=== PATIENT | female | born 1970 | race Caucasian/White ===

== ENCOUNTER 2020-09-07 13:42 | Inpatient (IN) ==
[2020-09-07] MEDS ORDERED: Isovue-370 500 ML BOTTLE IVP ONE (15:49)
[2020-09-07] MEDS ORDERED: Gadolinium Contrast Agent (WT Based) IV PRN (16:28)
[2020-09-07] MEDS ORDERED: Naloxone 0.4 MG/ML INJ IVP PRN (16:36)
[2020-09-07] MEDS ORDERED: *HR* OxyCODONE Immed Rel 5 MG TABLET PO PRN (16:36)
[2020-09-07] MEDS ORDERED: Potassium Chloride Elixir 20 MEQ/15 ML UDC PO ONE (16:53)
[2020-09-07] MEDS ORDERED: Isovue-370 500 ML BOTTLE PO ONE (17:12)
[2020-09-07] MEDS: Nicotine 14 MG PATCH.TD24 TD SCH (17:40)
[2020-09-07] MEDS: *HR* OxyCODONE Immed Rel 5 MG TABLET PO PRN (17:45)
[2020-09-07 18:42] LABS: Lactate Dehydrogenase > 3600 Units/L (140-271); Magnesium 1.7 mg/dL (1.6-2.6)
[2020-09-07 19:27] LABS: Hepatitis B Surface Antigen Nonreactive (Nonreactive)
[2020-09-07 19:58] LABS: Hepatitis B Core IgM Nonreactive (Nonreactive)
[2020-09-07 20:00] LABS: Hepatitis A Antibody IgM Nonreactive (Nonreactive)
[2020-09-07] MEDS ORDERED: *HR* HYDROmorphone (PF) 1 MG/ML SYRINGE IVP ONE (20:47)
[2020-09-07 23:07] LABS: Hepatitis C Virus Antibody Reactive (Nonreactive)
[2020-09-08 01:08] LABS: Basophils % 0.3 %; Eosinophils # 0.1 K/mcL (0.0-0.6); Hematocrit 37.9 % (35.3-44.9); Hemoglobin 12.2 g/dL (11.5-15.4); Immature Granulocytes % 1.8 % (0-4); Lymphocytes # 1.1 K/mcL (0.6-4.6); Lymphocytes % 12.3 %; Mean Corpuscular HGB Conc 32.2 g/dL (31.6-35.5); Mean Corpuscular Hemoglobin 31.7 pg (28.0-33.3); Mean Corpuscular Volume 98.4 fL (83.0-100.0); Mean Platelet Volume 10.5 fL (9.4-12.4); Monocytes # 0.6 K/mcL (0.0-1.3); Monocytes % 6.9 %; Nucleated Red Blood Cells 0.4 /100 WBC (0); Platelet Count 190 K/mcL (140-400); Red Blood Count 3.85 M/mcL (3.82-4.97); Red Cell Distribution Width 14.3 % (11.5-14.5); Segmented Neutrophils % 77.7 %
[2020-09-08 01:15] LABS: INR 1.2; Prothrombin Time 13.5 Seconds (9.4-12.1)
[2020-09-08 01:25] LABS: BUN/Creatinine Ratio 20 (6-26); Blood Urea Nitrogen 17 mg/dL (6-20); Calcium 12.3 mg/dL (8.6-10.3); Carbon Dioxide 32 mEq/L (23-29); Chloride 97 mEq/L (98-107); Glucose 120 mg/dL (70-105); Magnesium 1.8 mg/dL (1.6-2.6); Osmolality,Calculated 287 (280-300); Phosphorous 3.6 mg/dL (2.7-4.5); Potassium 3.2 mEq/L (3.5-5.1); Sodium 137 mEq/L (136-145); eGFR For African Americans > 60 (> 60); eGFR For Non-African Americans > 60 (> 60)
[2020-09-08] MEDS: *HR* OxyCODONE Immed Rel 5 MG TABLET PO PRN ×3 (06:20→20:02)
[2020-09-08] MEDS: Nicotine 14 MG PATCH.TD24 TD SCH (08:23)
[2020-09-08] MEDS: Ondansetron 4 MG/2 ML VIAL IVP PRN ×2 (08:33→20:14)
[2020-09-08] MEDS ORDERED: *HR* FentaNYL (PF) 100 MCG/2 ML VIAL IVP ONE (12:22)
[2020-09-08] MEDS ORDERED: *HR* Midazolam HCl 2 MG/2 ML VIAL IVP ONE (12:22)
[2020-09-08] MEDS ORDERED: 0.9 % Sodium Chloride 500 ML ONE (12:35)
[2020-09-08] MEDS ORDERED: *HR* OxyCODONE Immed Rel 5 MG TABLET PO PRN (13:49)
[2020-09-08] MEDS ORDERED: Sennosides 8.6 MG TABLET PO PRN (13:55)
[2020-09-08] MEDS: Gabapentin 300 MG CAPSULE PO SCH ×2 (14:50→20:02)
[2020-09-08] MEDS: hydrALAZINE 25 MG TABLET PO SCH (15:04)
[2020-09-08] MEDS: Ringers Solution, Lactated 1,000 ML IVC SCH (15:36)
[2020-09-09] MEDS: ALPRAZolam 0.5 MG TABLET PO PRN ×2 (00:46→20:09)
[2020-09-09 01:25] LABS: Basophils % 0.4 %; Eosinophils # 0.1 K/mcL (0.0-0.6); Eosinophils % 1.8 %; Hematocrit 34.8 % (35.3-44.9); Hemoglobin 10.9 g/dL (11.5-15.4); Immature Granulocytes % 1.7 % (0-4); Lymphocytes # 0.8 K/mcL (0.6-4.6); Lymphocytes % 11.5 %; Mean Corpuscular HGB Conc 31.3 g/dL (31.6-35.5); Mean Corpuscular Hemoglobin 31.7 pg (28.0-33.3); Mean Corpuscular Volume 101.2 fL (83.0-100.0); Mean Platelet Volume 10.5 fL (9.4-12.4); Monocytes # 0.6 K/mcL (0.0-1.3); Monocytes % 8.5 %; Neutrophils # 5.5 K/mcL (1.6-8.9); Nucleated Red Blood Cells 0.4 /100 WBC (0); Platelet Count 155 K/mcL (140-400); Red Blood Count 3.44 M/mcL (3.82-4.97); Red Cell Distribution Width 14.3 % (11.5-14.5); Segmented Neutrophils % 76.1 %; White Blood Count 7.2 K/mcL (4.3-11.1)
[2020-09-09] MEDS: *HR* OxyCODONE Immed Rel 5 MG TABLET PO PRN ×5 (01:36→23:11)
[2020-09-09 01:46] LABS: BUN/Creatinine Ratio 23 (6-26); Blood Urea Nitrogen 18 mg/dL (6-20); Calcium 12.1 mg/dL (8.6-10.3); Carbon Dioxide 31 mEq/L (23-29); Chloride 96 mEq/L (98-107); Glucose 111 mg/dL (70-105); Osmolality,Calculated 289 (280-300); Potassium 3.6 mEq/L (3.5-5.1); Sodium 138 mEq/L (136-145); eGFR For African Americans > 60 (> 60); eGFR For Non-African Americans > 60 (> 60)
[2020-09-09] MEDS: *HR* Enoxaparin 40 MG/0.4 ML SYRINGE SQ SCH (07:04)
[2020-09-09] MEDS: Ringers Solution, Lactated 1,000 ML IVC SCH (07:04)
[2020-09-09] MEDS: hydrALAZINE 25 MG TABLET PO SCH (08:18)
[2020-09-09] MEDS: Gabapentin 300 MG CAPSULE PO SCH ×3 (08:18→20:09)
[2020-09-09] MEDS: Cholecalciferol (D-3) 1,000 UNIT (25MCG) TABLET PO SCH (08:18)
[2020-09-09] MEDS: Aspirin Enteric Coated 81 MG Tablet PO SCH (08:19)
[2020-09-09] MEDS: Nicotine 14 MG PATCH.TD24 TD SCH (08:19)
[2020-09-09] MEDS: Ondansetron 4 MG/2 ML VIAL IVP PRN (08:29)
[2020-09-09] MEDS: Sennosides 8.6 MG TABLET PO SCH (10:23)
[2020-09-09] MEDS: Morphine Sulfate ER (12 HR) 15 MG TABLET.ER PO SCH ×2 (10:23→20:09)
[2020-09-09] MEDS: dexAMETHasone 4 MG TABLET PO SCH ×2 (15:03→20:09)
[2020-09-09] MEDS: Ipratropium/Albuterol Neb 3 ML IH PRN (15:44)
[2020-09-10 00:59] LABS: Basophils % 0.3 %; Eosinophils % 0.3 %; Hematocrit 35.9 % (35.3-44.9); Immature Granulocytes % 2.3 % (0-4); Lymphocytes # 0.6 K/mcL (0.6-4.6); Lymphocytes % 8.2 %; Mean Corpuscular HGB Conc 30.6 g/dL (31.6-35.5); Mean Corpuscular Hemoglobin 31.4 pg (28.0-33.3); Mean Corpuscular Volume 102.6 fL (83.0-100.0); Mean Platelet Volume 10.7 fL (9.4-12.4); Monocytes # 0.2 K/mcL (0.0-1.3); Monocytes % 3.5 %; Neutrophils # 5.9 K/mcL (1.6-8.9); Platelet Count 155 K/mcL (140-400); Red Cell Distribution Width 14.2 % (11.5-14.5); Segmented Neutrophils % 85.4 %
[2020-09-10] MEDS: *HR* OxyCODONE Immed Rel 5 MG TABLET PO PRN ×5 (02:12→22:41)
[2020-09-10] MEDS: *HR* Enoxaparin 40 MG/0.4 ML SYRINGE SQ SCH (05:26)
[2020-09-10] MEDS: Cholecalciferol (D-3) 1,000 UNIT (25MCG) TABLET PO SCH (08:16)
[2020-09-10] MEDS: Gabapentin 300 MG CAPSULE PO SCH ×3 (08:16→20:32)
[2020-09-10] MEDS: Morphine Sulfate ER (12 HR) 15 MG TABLET.ER PO SCH ×2 (08:16→20:33)
[2020-09-10] MEDS: Aspirin Enteric Coated 81 MG Tablet PO SCH (08:16)
[2020-09-10] MEDS: hydrALAZINE 25 MG TABLET PO SCH (08:17)
[2020-09-10] MEDS: dexAMETHasone 4 MG TABLET PO SCH ×3 (08:17→20:32)
[2020-09-10] MEDS: Nicotine 14 MG PATCH.TD24 TD SCH (08:18)
[2020-09-10] MEDS: Sennosides 8.6 MG TABLET PO SCH (08:18)
[2020-09-10] MEDS: Ipratropium/Albuterol Neb 3 ML IH PRN (15:55)
[2020-09-10] MEDS: ALPRAZolam 0.5 MG TABLET PO PRN (20:32)
[2020-09-11] MEDS: *HR* OxyCODONE Immed Rel 5 MG TABLET PO PRN ×3 (02:58→17:28)
[2020-09-11 04:54] LABS: HCV Quant Log NOT DETECTED log IU/mL
[2020-09-11] MEDS: *HR* Enoxaparin 40 MG/0.4 ML SYRINGE SQ SCH (05:41)
[2020-09-11] MEDS: hydrALAZINE 25 MG TABLET PO SCH (08:19)
[2020-09-11] MEDS: Morphine Sulfate ER (12 HR) 15 MG TABLET.ER PO SCH ×2 (08:20→20:19)
[2020-09-11] MEDS: Gabapentin 300 MG CAPSULE PO SCH ×3 (08:20→20:19)
[2020-09-11] MEDS: Cholecalciferol (D-3) 1,000 UNIT (25MCG) TABLET PO SCH (08:20)
[2020-09-11] MEDS: Aspirin Enteric Coated 81 MG Tablet PO SCH (08:20)
[2020-09-11] MEDS: Sennosides 8.6 MG TABLET PO SCH ×2 (08:20→20:19)
[2020-09-11] MEDS: dexAMETHasone 4 MG TABLET PO SCH ×3 (08:21→20:19)
[2020-09-11] MEDS: Nicotine 14 MG PATCH.TD24 TD SCH (08:21)
[2020-09-11] MEDS ORDERED: polyethylene glycoL 3350 17 GM POWD.PACK PO ONE (10:30)
[2020-09-11] MEDS: Fluticasone Propionate Nasal 50 MCG/SPRAY BOTTLE NS SCH (10:37)
[2020-09-11] MEDS: levoFLOXacin 750 MG TABLET PO SCH (10:37)
[2020-09-11 11:14] LABS: HCV Quant Interpretation NOT DETECTED (Not Detected)
[2020-09-11] MEDS ORDERED: 0.9 % Sodium Chloride 250 ML ONE (11:56)
[2020-09-11] MEDS: Ipratropium/Albuterol Neb 3 ML IH SCH ×2 (15:43→22:20)
[2020-09-12] MEDS: ALPRAZolam 0.5 MG TABLET PO PRN (01:39)
[2020-09-12] MEDS: Ipratropium/Albuterol Neb 3 ML IH SCH ×4 (03:46→21:06)
[2020-09-12] MEDS: *HR* Enoxaparin 40 MG/0.4 ML SYRINGE SQ SCH (05:52)
[2020-09-12] MEDS: Aspirin Enteric Coated 81 MG Tablet PO SCH (07:52)
[2020-09-12] MEDS: Cholecalciferol (D-3) 1,000 UNIT (25MCG) TABLET PO SCH (07:52)
[2020-09-12] MEDS: Gabapentin 300 MG CAPSULE PO SCH (07:52)
[2020-09-12] MEDS: dexAMETHasone 4 MG TABLET PO SCH ×3 (07:52→21:30)
[2020-09-12] MEDS: hydrALAZINE 25 MG TABLET PO SCH (07:53)
[2020-09-12] MEDS: levoFLOXacin 750 MG TABLET PO SCH (07:53)
[2020-09-12] MEDS: Morphine Sulfate ER (12 HR) 15 MG TABLET.ER PO SCH (07:53)
[2020-09-12] MEDS: Sennosides 8.6 MG TABLET PO SCH ×2 (07:53→21:30)
[2020-09-12] MEDS: Nicotine 14 MG PATCH.TD24 TD SCH (07:53)
[2020-09-12] MEDS: Fluticasone Propionate Nasal 50 MCG/SPRAY BOTTLE NS SCH (07:59)
[2020-09-12] MEDS ORDERED: hydrALAZINE 25 MG TABLET PO SCH (09:00)
[2020-09-12 12:01] LABS: Alanine Aminotransferase 31 Units/L (7-52); Albumin 3.5 g/dL (3.5-5.7); Alkaline Phosphatase 149 Units/L (34-104); Aspartate Amino Transferase 77 Units/L (13-39); BUN/Creatinine Ratio 38 (6-26); Bilirubin,Total 0.5 mg/dL (0.3-1.0); Blood Urea Nitrogen 34 mg/dL (6-20); Calcium 13.2 mg/dL (8.6-10.3); Carbon Dioxide 33 mEq/L (23-29); Chloride 96 mEq/L (98-107); Globulin 3.6 g/dL (2.4-3.5); Glucose 127 mg/dL (70-105); Osmolality,Calculated 293 (280-300); Potassium 4.8 mEq/L (3.5-5.1); Sodium 137 mEq/L (136-145); Total Protein 7.1 g/dL (6.4-8.9); eGFR For African Americans > 60 (> 60); eGFR For Non-African Americans > 60 (> 60)
[2020-09-12] MEDS: Ringers Solution, Lactated 1,000 ML IVC SCH ×2 (12:50→21:29)
[2020-09-12] MEDS ORDERED: Gadolinium Contrast Agent (WT Based) IV PRN (15:20)
[2020-09-12] MEDS ORDERED: *HR* OxyCODONE Immed Rel 5 MG TABLET PO PRN (16:54)
[2020-09-12] MEDS: levETIRAcetam 250 MG TABLET PO SCH (17:10)
[2020-09-12] MEDS: *HR* OxyCODONE Immed Rel 5 MG TABLET PO PRN (21:30)
[2020-09-13] MEDS: *HR* OxyCODONE Immed Rel 5 MG TABLET PO PRN ×2 (00:30→09:54)
[2020-09-13 01:43] LABS: Basophils # 0.1 K/mcL (0.0-0.2); Basophils % 0.5 %; Eosinophils # 0.1 K/mcL (0.0-0.6); Eosinophils % 0.4 %; Hematocrit 36.9 % (35.3-44.9); Hemoglobin 11.4 g/dL (11.5-15.4); Immature Granulocytes % 3.8 % (0-4); Lymphocytes # 0.7 K/mcL (0.6-4.6); Lymphocytes % 5.1 %; Mean Corpuscular HGB Conc 30.9 g/dL (31.6-35.5); Mean Corpuscular Hemoglobin 30.9 pg (28.0-33.3); Mean Platelet Volume 11.1 fL (9.4-12.4); Monocytes # 0.5 K/mcL (0.0-1.3); Neutrophils # 11.2 K/mcL (1.6-8.9); Nucleated Red Blood Cells 0.5 /100 WBC (0); Platelet Count 157 K/mcL (140-400); Red Blood Count 3.69 M/mcL (3.82-4.97); Red Cell Distribution Width 13.8 % (11.5-14.5); Segmented Neutrophils % 86.2 %
[2020-09-13 02:06] LABS: Alanine Aminotransferase 33 Units/L (7-52); Albumin 3.3 g/dL (3.5-5.7); Albumin/Globulin Ratio 0.9 (1.1-2.2); Alkaline Phosphatase 147 Units/L (34-104); Aspartate Amino Transferase 78 Units/L (13-39); BUN/Creatinine Ratio 36 (6-26); Bilirubin,Total 0.5 mg/dL (0.3-1.0); Blood Urea Nitrogen 36 mg/dL (6-20); Calcium 12.7 mg/dL (8.6-10.3); Carbon Dioxide 32 mEq/L (23-29); Chloride 94 mEq/L (98-107); Globulin 3.5 g/dL (2.4-3.5); Glucose 153 mg/dL (70-105); Magnesium 1.7 mg/dL (1.6-2.6); Osmolality,Calculated 295 (280-300); Potassium 4.7 mEq/L (3.5-5.1); Sodium 137 mEq/L (136-145); Total Protein 6.8 g/dL (6.4-8.9); eGFR For African Americans > 60 (> 60); eGFR For Non-African Americans 58 (> 60)
[2020-09-13] MEDS: ALPRAZolam 0.5 MG TABLET PO PRN (02:55)
[2020-09-13 04:35] LABS: ABG Base Excess 7 mEq/L (-2 to 3); ABG HCO3 32 mEq/L (21-27); ABG Oxygen Saturation 96 % (95-98); ABG PCO2 48 mmHg (35-45); ABG PH 7.43 pH Units (7.32-7.45); ABG PO2 81 mmHg (85-104); ABG TCO2 33 mEq/L (20-26)
[2020-09-13] MEDS: Ipratropium/Albuterol Neb 3 ML IH SCH ×4 (04:35→21:23)
[2020-09-13] MEDS: Haloperidol Lactate 5 MG/ML VIAL IM ONE (04:37)
[2020-09-13] MEDS: levETIRAcetam 250 MG TABLET PO SCH ×2 (05:26→17:18)
[2020-09-13] MEDS ORDERED: *HR* LORazepam 2 MG/ML VIAL IVP ONE (05:54)
[2020-09-13] MEDS ORDERED: Isovue-370 500 ML BOTTLE IVP ONE (05:54)
[2020-09-13] MEDS: Nicotine 14 MG PATCH.TD24 TD SCH (08:15)
[2020-09-13] MEDS: Ringers Solution, Lactated 1,000 ML IVC SCH ×2 (08:17→17:32)
[2020-09-13] MEDS: Fluticasone Propionate Nasal 50 MCG/SPRAY BOTTLE NS SCH (08:20)
[2020-09-13 09:03] LABS: Adenovirus Not Detected (Not Detect); Bordetella Pertussis Not Detected (Not Detect); Chlamydophila pneumoniae Not Detected (Not Detect); Coronavirus 229E Not Detected (Not Detect); Coronavirus HKU1 Not Detected (Not Detect); Coronavirus NL63 Not Detected (Not Detect); Coronavirus OC43 Not Detected (Not Detect); Human Metapneumovirus Not Detected (Not Detect); Human Rhinovirus/Enterovirus Not Detected (Not Detect); Influenza A Subtype 2009 H1 Not Detected (Not Detect); Influenza B Not Detected (Not Detect); Mycoplasma pneumoniae Not Detected (Not Detect); Parainfluenza Virus 1 Not Detected (Not Detect); Parainfluenza Virus 2 Not Detected (Not Detect); Parainfluenza Virus 3 Not Detected (Not Detect); Parainfluenza Virus 4 Not Detected (Not Detect); Respiratory Syncytial Virus Not Detected (Not Detect); SARS-CoV-2 Not Detected (Not Detect)
[2020-09-13] MEDS ORDERED: Furosemide 20 MG/2 ML VIAL IVP ONE (11:27)
[2020-09-13] MEDS: Aspirin Enteric Coated 81 MG Tablet PO SCH (12:42)
[2020-09-13] MEDS: dexAMETHasone 4 MG TABLET PO SCH ×3 (12:43→19:43)
[2020-09-13] MEDS: levoFLOXacin 750 MG TABLET PO SCH (12:44)
[2020-09-13] MEDS: hydrALAZINE 25 MG TABLET PO SCH (12:44)
[2020-09-13] MEDS: Isosorbide MONOnitrate (24 HR) 60 MG TAB.ER.24H PO SCH (12:44)
[2020-09-13] MEDS: Sennosides 8.6 MG TABLET PO SCH ×2 (12:44→19:43)
[2020-09-13] MEDS: Cholecalciferol (D-3) 1,000 UNIT (25MCG) TABLET PO SCH (12:45)
[2020-09-13] MEDS ORDERED: *HR* HYDROmorphone (PF) 1 MG/ML SYRINGE IVP PRN (12:58)
[2020-09-13] MEDS ORDERED: Ondansetron 4 MG/2 ML VIAL ONE (14:24)
[2020-09-13] MEDS ORDERED: Dexamethasone 4 MG/ML VIAL ONE (14:24)
[2020-09-13] MEDS ORDERED: Lidocaine -MPF 2% 2 ML VIAL ONE (14:24)
[2020-09-13] MEDS ORDERED: *HR* FentaNYL (PF) 100 MCG/2 ML VIAL ONE (14:25)
[2020-09-13] MEDS ORDERED: *HR* Propofol 200 MG/20 ML VIAL IVP ONE (14:25)
[2020-09-13] MEDS ORDERED: Pamidronate 30 MG in 0.9 % Sodium Chloride 500 ML IVPB ONE (14:28)
[2020-09-13] MEDS ORDERED: *HR* Rocuronium Bromide 50 MG/5 ML VIAL ONE (14:44)
[2020-09-13] MEDS ORDERED: *HR* Metoprolol 5 MG/5 ML VIAL IVP PRN (15:27)
[2020-09-13] MEDS: Dexmedetomidine HCl 400 MCG/100 ML MLS IVC SCH (16:52)
[2020-09-13] MEDS: allopurinoL 300 MG TABLET PO SCH (17:17)
[2020-09-13] MEDS: levoFLOXacin 750 MG/150 ML 750 MG/150 ML BAG IVPB SCH (17:33)
[2020-09-13] MEDS: *HR* HYDROmorphone (PF) 1 MG/ML SYRINGE IVP PRN (17:36)
[2020-09-13] MEDS: *HR* LORazepam 2 MG/ML VIAL IVP PRN (20:15)
[2020-09-14] MEDS ORDERED: ETOPOSIDE IVPB SCH
[2020-09-14] MEDS ORDERED: CISPLATIN IV SCH
[2020-09-14] MEDS ORDERED: Fosaprepitant Dimeglumine 150 MG in 0.9 % Sodium Chloride 150 ML IVPB SCH
[2020-09-14] MEDS ORDERED: MAGNESIUM SULFATE IV SCH
[2020-09-14] MEDS ORDERED: SODIUM CHLORIDE EXCEL BG 0.9% IVPB SCH
[2020-09-14] MEDS ORDERED: SODIUM CHLORIDE 0.9% IV SCH
[2020-09-14 00:59] LABS: Basophils # 0.1 K/mcL (0.0-0.2); Basophils % 0.6 %; Hematocrit 35.2 % (35.3-44.9); Hemoglobin 11.4 g/dL (11.5-15.4); Immature Granulocytes % 4.9 % (0-4); Lymphocytes # 0.8 K/mcL (0.6-4.6); Mean Corpuscular HGB Conc 32.4 g/dL (31.6-35.5); Mean Corpuscular Hemoglobin 31.5 pg (28.0-33.3); Mean Corpuscular Volume 97.2 fL (83.0-100.0); Mean Platelet Volume 11.2 fL (9.4-12.4); Monocytes # 0.3 K/mcL (0.0-1.3); Monocytes % 2.9 %; Neutrophils # 8.2 K/mcL (1.6-8.9); Nucleated Red Blood Cells 1.5 /100 WBC (0); Platelet Count 147 K/mcL (140-400); Red Blood Count 3.62 M/mcL (3.82-4.97); Red Cell Distribution Width 13.9 % (11.5-14.5); Segmented Neutrophils % 83.6 %; White Blood Count 9.8 K/mcL (4.3-11.1)
[2020-09-14 01:19] LABS: Phosphorous 4.4 mg/dL (2.7-4.5); Uric Acid 11.4 mg/dL (2.3-7.6)
[2020-09-14] MEDS: Dexmedetomidine HCl 400 MCG/100 ML MLS IVC SCH ×4 (01:34→19:42)
[2020-09-14 01:43] LABS: Alanine Aminotransferase 32 Units/L (7-52); Albumin 3.2 g/dL (3.5-5.7); Albumin/Globulin Ratio 0.9 (1.1-2.2); Alkaline Phosphatase 144 Units/L (34-104); Aspartate Amino Transferase 79 Units/L (13-39); BUN/Creatinine Ratio 40 (6-26); Bilirubin,Total 0.5 mg/dL (0.3-1.0); Blood Urea Nitrogen 35 mg/dL (6-20); Calcium 12.8 mg/dL (8.6-10.3); Carbon Dioxide 35 mEq/L (23-29); Chloride 92 mEq/L (98-107); Globulin 3.6 g/dL (2.4-3.5); Glucose 112 mg/dL (70-105); Magnesium 1.8 mg/dL (1.6-2.6); Osmolality,Calculated 297 (280-300); Potassium 4.5 mEq/L (3.5-5.1); Sodium 139 mEq/L (136-145); Total Protein 6.8 g/dL (6.4-8.9); eGFR For African Americans > 60 (> 60); eGFR For Non-African Americans > 60 (> 60)
[2020-09-14] MEDS: *HR* HYDROmorphone (PF) 1 MG/ML SYRINGE IVP PRN ×4 (03:09→23:39)
[2020-09-14] MEDS: Ipratropium/Albuterol Neb 3 ML IH SCH ×4 (03:45→22:10)
[2020-09-14] MEDS: *HR* Enoxaparin 40 MG/0.4 ML SYRINGE SQ SCH (05:41)
[2020-09-14] MEDS: Ringers Solution, Lactated 1,000 ML IVC SCH (05:42)
[2020-09-14] MEDS ORDERED: Lidocaine -MPF 1% 5 ML AMPUL INFILT ONE (07:41)
[2020-09-14] MEDS: *HR* LORazepam 2 MG/ML VIAL IVP PRN ×2 (08:34→17:25)
[2020-09-14] MEDS: levoFLOXacin 750 MG/150 ML 750 MG/150 ML BAG IVPB SCH (08:35)
[2020-09-14] MEDS: Aspirin Enteric Coated 81 MG Tablet PO SCH (08:39)
[2020-09-14] MEDS: dexAMETHasone 4 MG TABLET PO SCH ×2 (08:40→20:09)
[2020-09-14] MEDS: Sennosides 8.6 MG TABLET PO SCH ×2 (08:40→19:42)
[2020-09-14] MEDS: allopurinoL 300 MG TABLET PO SCH (08:40)
[2020-09-14] MEDS: Cholecalciferol (D-3) 1,000 UNIT (25MCG) TABLET PO SCH (08:40)
[2020-09-14] MEDS: Isosorbide MONOnitrate (24 HR) 60 MG TAB.ER.24H PO SCH (08:40)
[2020-09-14] MEDS: hydrALAZINE 25 MG TABLET PO SCH (08:40)
[2020-09-14] MEDS: Fluticasone Propionate Nasal 50 MCG/SPRAY BOTTLE NS SCH (08:40)
[2020-09-14] MEDS ORDERED: Haloperidol Lactate 5 MG/ML VIAL IVP ONE (08:58)
[2020-09-14] MEDS: Haloperidol Lactate 5 MG/ML VIAL IM ONE (11:11)
[2020-09-14] MEDS ORDERED: *HR* LORazepam 2 MG/ML VIAL IVP PRN (12:00)
[2020-09-14] MEDS ORDERED: Furosemide 20 MG/2 ML VIAL IVP PRN (12:00)
[2020-09-14] MEDS ORDERED: 0.9 % Sodium Chloride w KCl 20 MEQ/1,000 ML MLS IVC ONE (12:00)
[2020-09-14] MEDS ORDERED: Prochlorperazine 10 MG/2 ML VIAL IVP PRN (12:24)
[2020-09-14] MEDS ORDERED: Dexamethasone 4 MG/ML VIAL IVP SCH (13:00)
[2020-09-14 18:02] LABS: BUN/Creatinine Ratio 34 (6-26); Blood Urea Nitrogen 35 mg/dL (6-20); Calcium 11.3 mg/dL (8.6-10.3); Carbon Dioxide 26 mEq/L (23-29); Chloride 100 mEq/L (98-107); Glucose 189 mg/dL (70-105); Osmolality,Calculated 299 (280-300); Phosphorous 4.7 mg/dL (2.7-4.5); Potassium 5.4 mEq/L (3.5-5.1); Sodium 138 mEq/L (136-145); eGFR For African Americans > 60 (> 60); eGFR For Non-African Americans 56 (> 60)
[2020-09-14] MEDS: Nicotine 14 MG PATCH.TD24 TD SCH (20:14)
[2020-09-15] MEDS: Dexmedetomidine HCl 400 MCG/100 ML MLS IVC SCH ×4 (00:57→20:11)
[2020-09-15] MEDS: *HR* LORazepam 2 MG/ML VIAL IVP PRN ×3 (01:17→23:01)
[2020-09-15 04:02] LABS: Albumin 2.9 g/dL (3.5-5.7); BUN/Creatinine Ratio 39 (6-26); Blood Urea Nitrogen 43 mg/dL (6-20); Calcium 10.7 mg/dL (8.6-10.3); Carbon Dioxide 26 mEq/L (23-29); Chloride 96 mEq/L (98-107); Glucose 359 mg/dL (70-105); Osmolality,Calculated 305 (280-300); Phosphorous 5.2 mg/dL (2.7-4.5); Potassium 5.1 mEq/L (3.5-5.1); Sodium 135 mEq/L (136-145); Uric Acid 13.4 mg/dL (2.3-7.6); eGFR For African Americans > 60 (> 60); eGFR For Non-African Americans 53 (> 60)
[2020-09-15] MEDS: Ipratropium/Albuterol Neb 3 ML IH SCH ×4 (04:17→21:28)
[2020-09-15] MEDS: *HR* Enoxaparin 40 MG/0.4 ML SYRINGE SQ SCH (05:14)
[2020-09-15] MEDS: *HR* HYDROmorphone (PF) 1 MG/ML SYRINGE IVP PRN (06:03)
[2020-09-15] MEDS ORDERED: SODIUM CHLORIDE 0.9% IVPB ONE (09:04)
[2020-09-15] MEDS ORDERED: RASBURICASE IVPB ONE (09:04)
[2020-09-15] MEDS: Fluticasone Propionate Nasal 50 MCG/SPRAY BOTTLE NS SCH (09:05)
[2020-09-15] MEDS: Aspirin Enteric Coated 81 MG Tablet PO SCH (09:05)
[2020-09-15] MEDS: Sennosides 8.6 MG TABLET PO SCH ×2 (09:06→19:44)
[2020-09-15] MEDS: levoFLOXacin 750 MG/150 ML 750 MG/150 ML BAG IVPB SCH (09:10)
[2020-09-15] MEDS: Nicotine 14 MG PATCH.TD24 TD SCH (09:11)
[2020-09-15] MEDS: Dexamethasone 4 MG/ML VIAL IVP SCH ×3 (09:18→20:10)
[2020-09-15] MEDS ORDERED: SODIUM CHLORIDE EXCEL BG 0.9% IVPB SCH (14:00)
[2020-09-15] MEDS ORDERED: Prochlorperazine 10 MG/2 ML VIAL IVP SCH (14:00)
[2020-09-15] MEDS ORDERED: *HR* LORazepam 2 MG/ML VIAL IVP PRN (14:00)
[2020-09-15] MEDS ORDERED: ETOPOSIDE IVPB SCH (14:00)
[2020-09-15] MEDS ORDERED: 0.9 % Sodium Chloride 500 ML IVC SCH (14:00)
[2020-09-16] MEDS: Ipratropium/Albuterol Neb 3 ML IH SCH ×4 (03:33→23:00)
[2020-09-16] MEDS: Dexmedetomidine HCl 400 MCG/100 ML MLS IVC SCH ×2 (04:51→13:36)
[2020-09-16 05:20] LABS: Calcium 9.5 mg/dL (8.6-10.3); Phosphorous 5.5 mg/dL (2.7-4.5); Potassium 4.9 mEq/L (3.5-5.1)
[2020-09-16] MEDS: *HR* Enoxaparin 40 MG/0.4 ML SYRINGE SQ SCH (06:40)
[2020-09-16] MEDS: Nicotine 14 MG PATCH.TD24 TD SCH (08:23)
[2020-09-16] MEDS: Dexamethasone 4 MG/ML VIAL IVP SCH ×3 (08:25→21:33)
[2020-09-16] MEDS: levoFLOXacin 750 MG/150 ML 750 MG/150 ML BAG IVPB SCH (08:28)
[2020-09-16] MEDS: *HR* HYDROmorphone (PF) 1 MG/ML SYRINGE IVP PRN (08:42)
[2020-09-16] MEDS: Fluticasone Propionate Nasal 50 MCG/SPRAY BOTTLE NS SCH (08:48)
[2020-09-16] MEDS: Aspirin Enteric Coated 81 MG Tablet PO SCH (10:35)
[2020-09-16] MEDS: Sennosides 8.6 MG TABLET PO SCH ×2 (10:36→21:37)
[2020-09-16] MEDS: *HR* LORazepam 2 MG/ML VIAL IVP PRN (10:48)
[2020-09-16] MEDS ORDERED: SODIUM CHLORIDE 0.9% IVPB ONE (11:00)
[2020-09-16] MEDS ORDERED: RASBURICASE IVPB ONE (11:00)
[2020-09-16] MEDS ORDERED: SODIUM CHLORIDE EXCEL BG 0.9% IVPB SCH (14:00)
[2020-09-16] MEDS ORDERED: 0.9 % Sodium Chloride 500 ML IVC SCH (14:00)
[2020-09-16] MEDS ORDERED: *HR* LORazepam 2 MG/ML VIAL IVP PRN (14:00)
[2020-09-16] MEDS ORDERED: ETOPOSIDE IVPB SCH (14:00)
[2020-09-16] MEDS ORDERED: Prochlorperazine 10 MG/2 ML VIAL ONE (14:26)
[2020-09-16] MEDS: QUEtiapine Fumarate 25 MG TABLET PO SCH ×2 (14:29→21:38)
[2020-09-16] MEDS ORDERED: Prochlorperazine 10 MG/2 ML VIAL IVP SCH (14:30)
[2020-09-16] MEDS ORDERED: Prochlorperazine 10 MG/2 ML VIAL IVP ONE (14:45)
[2020-09-16] MEDS ORDERED: *HR* Dextrose 50 % in Water (Vial) 50 ML VIAL IVP PRN (16:45)
[2020-09-16] MEDS ORDERED: Dextrose Gel 15 GM/37.5 ML TUBE PO PRN ×2 (16:45)
[2020-09-16] MEDS ORDERED: D5% in Water 1,000 ML IVC PRN (16:45)
[2020-09-16] MEDS: Insulin DETEMIR 100 UNIT/ML X5UNITS SUBQ SCH (17:56)
[2020-09-16] MEDS: Insulin LISPRO 300 UNITS/3 ML VIAL SUBQ SCH ×2 (17:56→21:44)
[2020-09-16] MEDS: allopurinoL 300 MG TABLET PO SCH (17:57)
[2020-09-17] MEDS: *HR* HYDROmorphone (PF) 1 MG/ML SYRINGE IVP PRN ×2 (01:42→11:06)
[2020-09-17] MEDS: Ipratropium/Albuterol Neb 3 ML IH SCH ×4 (03:33→22:15)
[2020-09-17 03:46] LABS: Hematocrit 32.4 % (35.3-44.9); Mean Corpuscular HGB Conc 29.9 g/dL (31.6-35.5); Mean Corpuscular Hemoglobin 30.6 pg (28.0-33.3); Mean Corpuscular Volume 102.2 fL (83.0-100.0); Mean Platelet Volume 11.3 fL (9.4-12.4); Platelet Count 100 K/mcL (140-400); Red Blood Count 3.17 M/mcL (3.82-4.97); Red Cell Distribution Width 13.7 % (11.5-14.5); White Blood Count 8.4 K/mcL (4.3-11.1)
[2020-09-17 04:05] LABS: Calcium 8.6 mg/dL (8.6-10.3); Magnesium 2.3 mg/dL (1.6-2.6); Phosphorous 6.8 mg/dL (2.7-4.5); Potassium 5.4 mEq/L (3.5-5.1); Uric Acid 5.1 mg/dL (2.3-7.6)
[2020-09-17 04:56] LABS: Hemoglobin 9.7 g/dL (11.5-15.4)
[2020-09-17] MEDS: *HR* Enoxaparin 40 MG/0.4 ML SYRINGE SQ SCH (04:57)
[2020-09-17] MEDS ORDERED: 0.9 % Sodium Chloride 500 ML IVC ONE ×2 (07:10→17:25)
[2020-09-17] MEDS: Insulin LISPRO 300 UNITS/3 ML VIAL SUBQ SCH ×4 (08:51→20:51)
[2020-09-17] MEDS: Dexamethasone 4 MG/ML VIAL IVP SCH ×3 (09:19→20:50)
[2020-09-17] MEDS: QUEtiapine Fumarate 25 MG TABLET PO SCH ×2 (09:20→23:27)
[2020-09-17] MEDS: Nicotine 14 MG PATCH.TD24 TD SCH (09:20)
[2020-09-17] MEDS: Sennosides 8.6 MG TABLET PO SCH ×2 (09:20→20:51)
[2020-09-17] MEDS: Aspirin Enteric Coated 81 MG Tablet PO SCH (09:20)
[2020-09-17] MEDS: allopurinoL 300 MG TABLET PO SCH (09:20)
[2020-09-17] MEDS: Fluticasone Propionate Nasal 50 MCG/SPRAY BOTTLE NS SCH (09:21)
[2020-09-17] MEDS: Insulin DETEMIR 100 UNIT/ML X5UNITS SUBQ SCH (09:21)
[2020-09-17] MEDS: *HR* LORazepam 2 MG/ML VIAL IVP PRN ×2 (09:53→20:50)
[2020-09-17] MEDS ORDERED: Acetaminophen 325 MG TABLET PO PRN (20:34)
[2020-09-18] MEDS ORDERED: *HR* LORazepam 2 MG/ML VIAL IVP STA (01:23)
[2020-09-18] MEDS: Ipratropium/Albuterol Neb 3 ML IH SCH ×4 (03:52→22:03)
[2020-09-18] MEDS: *HR* LORazepam 2 MG/ML VIAL IVP PRN ×2 (04:47→21:25)
[2020-09-18] MEDS: *HR* Enoxaparin 40 MG/0.4 ML SYRINGE SQ SCH (05:00)
[2020-09-18] MEDS: QUEtiapine Fumarate 25 MG TABLET PO SCH ×2 (08:31→20:14)
[2020-09-18] MEDS: Aspirin Enteric Coated 81 MG Tablet PO SCH (08:31)
[2020-09-18] MEDS: Sennosides 8.6 MG TABLET PO SCH ×2 (08:32→20:13)
[2020-09-18] MEDS: Dexamethasone 4 MG/ML VIAL IVP SCH ×3 (08:32→20:14)
[2020-09-18] MEDS: allopurinoL 300 MG TABLET PO SCH (08:32)
[2020-09-18] MEDS: Nicotine 14 MG PATCH.TD24 TD SCH (08:32)
[2020-09-18] MEDS: Fluticasone Propionate Nasal 50 MCG/SPRAY BOTTLE NS SCH (08:35)
[2020-09-18] MEDS: Insulin DETEMIR 100 UNIT/ML X5UNITS SUBQ SCH (08:39)
[2020-09-18] MEDS: Insulin LISPRO 300 UNITS/3 ML VIAL SUBQ SCH ×4 (08:40→20:11)
[2020-09-18] MEDS ORDERED: levoFLOXacin 750 MG/150 ML 750 MG/150 ML BAG IVPB SCH (09:00)
[2020-09-18 10:53] LABS: Hemoglobin 9.1 g/dL (11.5-15.4); Red Cell Distribution Width 13.6 % (11.5-14.5)
[2020-09-18 10:54] LABS: Hematocrit 29.2 % (35.3-44.9); Immature Platelets 6.6 % (1.1-6.1); Mean Corpuscular HGB Conc 31.2 g/dL (31.6-35.5); Mean Corpuscular Volume 99.3 fL (83.0-100.0); Mean Platelet Volume 11.4 fL (9.4-12.4); Red Blood Count 2.94 M/mcL (3.82-4.97); White Blood Count 14.9 K/mcL (4.3-11.1)
[2020-09-18 11:13] LABS: Calcium 7.8 mg/dL (8.6-10.3); Potassium 4.8 mEq/L (3.5-5.1)
[2020-09-18] MEDS ORDERED: Furosemide 40 MG/4 ML VIAL IVP ONE (12:49)
[2020-09-18 14:22] LABS: VBG Ionized Calcium 1.01 mmol/L (1.15-1.35)
[2020-09-19] MEDS: Ipratropium/Albuterol Neb 3 ML IH SCH ×4 (04:12→21:35)
[2020-09-19 04:29] LABS: Mean Corpuscular HGB Conc 31.5 g/dL (31.6-35.5); Mean Corpuscular Hemoglobin 31.5 pg (28.0-33.3)
[2020-09-19 04:31] LABS: Hematocrit 32.7 % (35.3-44.9); Hemoglobin 10.3 g/dL (11.5-15.4); Immature Platelets 5.8 % (1.1-6.1); Mean Platelet Volume 11.9 fL (9.4-12.4); Red Blood Count 3.27 M/mcL (3.82-4.97); Red Cell Distribution Width 13.3 % (11.5-14.5); White Blood Count 10.7 K/mcL (4.3-11.1)
[2020-09-19 04:40] LABS: BUN/Creatinine Ratio 48 (6-26); Blood Urea Nitrogen 51 mg/dL (6-20); Calcium 7.5 mg/dL (8.6-10.3); Carbon Dioxide 29 mEq/L (23-29); Chloride 96 mEq/L (98-107); Glucose 197 mg/dL (70-105); Osmolality,Calculated 297 (280-300); Potassium 4.6 mEq/L (3.5-5.1); Sodium 134 mEq/L (136-145); eGFR For African Americans > 60 (> 60); eGFR For Non-African Americans 54 (> 60)
[2020-09-19] MEDS: *HR* Enoxaparin 40 MG/0.4 ML SYRINGE SQ SCH (05:43)
[2020-09-19] MEDS: Dexamethasone 4 MG/ML VIAL IVP SCH ×3 (08:33→20:46)
[2020-09-19] MEDS: Insulin DETEMIR 100 UNIT/ML X5UNITS SUBQ SCH (08:33)
[2020-09-19] MEDS: Metoprolol XL (24 HR) Succ 25 MG TAB.ER.24H PO SCH (08:34)
[2020-09-19] MEDS: allopurinoL 300 MG TABLET PO SCH (08:34)
[2020-09-19] MEDS: QUEtiapine Fumarate 25 MG TABLET PO SCH ×2 (08:34→20:45)
[2020-09-19] MEDS: Nicotine 14 MG PATCH.TD24 TD SCH (08:34)
[2020-09-19] MEDS: Aspirin Enteric Coated 81 MG Tablet PO SCH (08:34)
[2020-09-19] MEDS: Sennosides 8.6 MG TABLET PO SCH ×2 (08:34→20:45)
[2020-09-19] MEDS: Insulin LISPRO 300 UNITS/3 ML VIAL SUBQ SCH ×4 (08:35→21:15)
[2020-09-19] MEDS ORDERED: Furosemide 40 MG/4 ML VIAL IVP SCH (09:00)
[2020-09-19 09:52] LABS: Phosphorous 4.5 mg/dL (2.7-4.5); Uric Acid 3.1 mg/dL (2.3-7.6)
[2020-09-19] MEDS ORDERED: *HR* Alteplase (Cathflo) 2 MG VIAL IVP ONE (09:55)
[2020-09-19] MEDS: Mag Hydrox/Al Hydrox/Simeth 30 ML UDC PO PRN ×2 (10:43→18:27)
[2020-09-19] MEDS ORDERED: Water for inj. (sterile) 10 ML ONE (10:50)
[2020-09-19] MEDS: Fluticasone Propionate Nasal 50 MCG/SPRAY BOTTLE NS SCH (12:23)
[2020-09-19] MEDS: polyethylene glycoL 3350 17 GM POWD.PACK PO SCH (15:44)
[2020-09-19] MEDS: Nystatin SUSP 5 ML UD.LIQ PO SCH ×3 (15:44→21:15)
[2020-09-19] MEDS: Ondansetron 4 MG/2 ML VIAL IVP PRN (15:49)
[2020-09-19] MEDS: Morphine Sulfate ER (12 HR) 15 MG TABLET.ER PO SCH (17:55)
[2020-09-19] MEDS: levETIRAcetam 250 MG TABLET PO SCH (17:55)
[2020-09-20] MEDS: *HR* LORazepam 2 MG/ML VIAL IVP PRN (03:40)
[2020-09-20] MEDS: Ipratropium/Albuterol Neb 3 ML IH SCH ×4 (04:05→22:40)
[2020-09-20 04:22] LABS: Mean Corpuscular Hemoglobin 30.5 pg (28.0-33.3); Mean Corpuscular Volume 97.2 fL (83.0-100.0)
[2020-09-20 04:24] LABS: Hematocrit 31.2 % (35.3-44.9); Hemoglobin 9.8 g/dL (11.5-15.4); Immature Platelets 5.4 % (1.1-6.1); Mean Corpuscular HGB Conc 31.4 g/dL (31.6-35.5); Mean Platelet Volume 11.5 fL (9.4-12.4); Red Blood Count 3.21 M/mcL (3.82-4.97); Red Cell Distribution Width 13.1 % (11.5-14.5); White Blood Count 4.2 K/mcL (4.3-11.1)
[2020-09-20 04:34] LABS: BUN/Creatinine Ratio 49 (6-26); Blood Urea Nitrogen 46 mg/dL (6-20); Calcium 7.7 mg/dL (8.6-10.3); Carbon Dioxide 30 mEq/L (23-29); Chloride 95 mEq/L (98-107); Glucose 186 mg/dL (70-105); Osmolality,Calculated 293 (280-300); Potassium 4.3 mEq/L (3.5-5.1); Sodium 133 mEq/L (136-145); eGFR For African Americans > 60 (> 60); eGFR For Non-African Americans > 60 (> 60)
[2020-09-20] MEDS: Morphine Sulfate ER (12 HR) 15 MG TABLET.ER PO SCH (06:39)
[2020-09-20] MEDS: levETIRAcetam 250 MG TABLET PO SCH ×2 (06:39→17:14)
[2020-09-20] MEDS: *HR* Enoxaparin 40 MG/0.4 ML SYRINGE SQ SCH (06:39)
[2020-09-20] MEDS: Nicotine 14 MG PATCH.TD24 TD SCH (07:59)
[2020-09-20] MEDS: Furosemide 40 MG/4 ML VIAL IVP SCH ×2 (08:01→21:31)
[2020-09-20] MEDS: allopurinoL 300 MG TABLET PO SCH (08:01)
[2020-09-20] MEDS: Metoprolol XL (24 HR) Succ 25 MG TAB.ER.24H PO SCH (08:01)
[2020-09-20] MEDS: Sennosides 8.6 MG TABLET PO SCH ×2 (08:01→21:30)
[2020-09-20] MEDS: Aspirin Enteric Coated 81 MG Tablet PO SCH (08:01)
[2020-09-20] MEDS: polyethylene glycoL 3350 17 GM POWD.PACK PO SCH (08:01)
[2020-09-20] MEDS: QUEtiapine Fumarate 25 MG TABLET PO SCH (08:01)
[2020-09-20] MEDS: Nystatin SUSP 5 ML UD.LIQ PO SCH ×4 (08:02→21:30)
[2020-09-20] MEDS: Dexamethasone 4 MG/ML VIAL IVP SCH ×3 (08:02→21:31)
[2020-09-20] MEDS: Insulin DETEMIR 100 UNIT/ML X5UNITS SUBQ SCH (08:49)
[2020-09-20] MEDS: Insulin LISPRO 300 UNITS/3 ML VIAL SUBQ SCH ×4 (08:49→21:32)
[2020-09-20] MEDS: Fluticasone Propionate Nasal 50 MCG/SPRAY BOTTLE NS SCH (08:49)
[2020-09-20] MEDS ORDERED: Perflutren Lipid Microsphere 1.3 ML in 0.9 % Sodium Chloride 8.7 ML IVP PRN (10:39)
[2020-09-20] MEDS ORDERED: NON-FORMULARY MEDICATION 1 EACH EACH (Buspirone Hcl [Buspar] 15 MG Tablet) PO SCH (10:45)
[2020-09-20] MEDS ORDERED: NON-FORMULARY MEDICATION 1 EACH EACH (Duloxetine Hcl [Cymbalta] 60 MG Capsule.Dr) PO SCH (10:45)
[2020-09-20] MEDS: ALPRAZolam 0.5 MG TABLET PO SCH ×2 (11:38→21:30)
[2020-09-20] MEDS ORDERED: 0.9 % Sodium Chloride 1,000 ML IVC SCH (16:30)
[2020-09-20] MEDS: *HR* OxyCODONE ER (12 HR) 10 MG TABLET PO SCH (17:14)
[2020-09-20] MEDS: Ondansetron 4 MG/2 ML VIAL IVP PRN (19:25)
[2020-09-20] MEDS: Mag Hydrox/Al Hydrox/Simeth 30 ML UDC PO PRN (19:25)
[2020-09-20] MEDS: QUEtiapine Fumarate 100 MG TABLET PO SCH (21:30)
[2020-09-21] MEDS: Ipratropium/Albuterol Neb 3 ML IH SCH ×4 (03:37→21:21)
[2020-09-21 05:56] LABS: BUN/Creatinine Ratio 52 (6-26); Blood Urea Nitrogen 46 mg/dL (6-20); Calcium 8.3 mg/dL (8.6-10.3); Carbon Dioxide 32 mEq/L (23-29); Chloride 94 mEq/L (98-107); Glucose 175 mg/dL (70-105); Osmolality,Calculated 298 (280-300); Potassium 4.1 mEq/L (3.5-5.1); Sodium 136 mEq/L (136-145); eGFR For African Americans > 60 (> 60); eGFR For Non-African Americans > 60 (> 60)
[2020-09-21] MEDS: *HR* Enoxaparin 40 MG/0.4 ML SYRINGE SQ SCH (06:06)
[2020-09-21] MEDS: levETIRAcetam 250 MG TABLET PO SCH ×2 (06:06→17:35)
[2020-09-21] MEDS: *HR* OxyCODONE ER (12 HR) 10 MG TABLET PO SCH ×2 (06:06→17:35)
[2020-09-21] MEDS ORDERED: Isovue-370 500 ML BOTTLE IVP ONE (08:41)
[2020-09-21] MEDS: Dexamethasone 4 MG/ML VIAL IVP SCH ×3 (11:07→23:22)
[2020-09-21] MEDS: Furosemide 40 MG/4 ML VIAL IVP SCH ×2 (11:10→23:23)
[2020-09-21] MEDS: Nicotine 14 MG PATCH.TD24 TD SCH (11:13)
[2020-09-21] MEDS: allopurinoL 300 MG TABLET PO SCH (11:13)
[2020-09-21] MEDS: Aspirin Enteric Coated 81 MG Tablet PO SCH (11:13)
[2020-09-21] MEDS: ALPRAZolam 0.5 MG TABLET PO SCH ×2 (11:13→23:22)
[2020-09-21] MEDS: Metoprolol XL (24 HR) Succ 25 MG TAB.ER.24H PO SCH (11:13)
[2020-09-21] MEDS: Sennosides 8.6 MG TABLET PO SCH ×3 (11:13→23:25)
[2020-09-21] MEDS: Nystatin SUSP 5 ML UD.LIQ PO SCH ×6 (11:14→23:26)
[2020-09-21] MEDS: polyethylene glycoL 3350 17 GM POWD.PACK PO SCH (11:14)
[2020-09-21 11:21] LABS: Adenovirus Not Detected (Not Detect); Coronavirus 229E Not Detected (Not Detect); Coronavirus HKU1 Not Detected (Not Detect); Coronavirus NL63 Not Detected (Not Detect); Coronavirus OC43 Not Detected (Not Detect); Human Metapneumovirus Not Detected (Not Detect); Human Rhinovirus/Enterovirus Not Detected (Not Detect); Influenza A Subtype 2009 H1 Not Detected (Not Detect); Influenza B Not Detected (Not Detect); SARS-CoV-2 Not Detected (Not Detect)
[2020-09-21 11:22] LABS: Bordetella Pertussis Not Detected (Not Detect); Chlamydophila pneumoniae Not Detected (Not Detect); Mycoplasma pneumoniae Not Detected (Not Detect); Parainfluenza Virus 1 Not Detected (Not Detect); Parainfluenza Virus 2 Not Detected (Not Detect); Parainfluenza Virus 3 Not Detected (Not Detect); Parainfluenza Virus 4 Not Detected (Not Detect); Respiratory Syncytial Virus Not Detected (Not Detect)
[2020-09-21] MEDS: Insulin LISPRO 300 UNITS/3 ML VIAL SUBQ SCH ×4 (11:24→20:30)
[2020-09-21] MEDS: Fluticasone Propionate Nasal 50 MCG/SPRAY BOTTLE NS SCH (11:24)
[2020-09-21] MEDS: Insulin DETEMIR 100 UNIT/ML X5UNITS SUBQ SCH (11:25)
[2020-09-21] MEDS: Ondansetron 4 MG/2 ML VIAL IVP PRN ×2 (11:33→18:43)
[2020-09-21] MEDS: QUEtiapine Fumarate 100 MG TABLET PO SCH (23:22)
[2020-09-22] MEDS: Ipratropium/Albuterol Neb 3 ML IH SCH ×3 (04:21→15:49)
[2020-09-22] MEDS: *HR* Enoxaparin 40 MG/0.4 ML SYRINGE SQ SCH (05:26)
[2020-09-22] MEDS: levETIRAcetam 250 MG TABLET PO SCH (05:31)
[2020-09-22] MEDS: *HR* OxyCODONE ER (12 HR) 10 MG TABLET PO SCH (05:31)
[2020-09-22] MEDS: Insulin LISPRO 300 UNITS/3 ML VIAL SUBQ SCH ×2 (07:48→11:53)
[2020-09-22] MEDS: Insulin DETEMIR 100 UNIT/ML X5UNITS SUBQ SCH (07:49)
[2020-09-22] MEDS: Dexamethasone 4 MG/ML VIAL IVP SCH ×2 (07:49→15:15)
[2020-09-22] MEDS: Aspirin Enteric Coated 81 MG Tablet PO SCH (07:49)
[2020-09-22] MEDS: Furosemide 40 MG/4 ML VIAL IVP SCH (07:49)
[2020-09-22] MEDS: Fluticasone Propionate Nasal 50 MCG/SPRAY BOTTLE NS SCH (07:49)
[2020-09-22] MEDS: Nystatin SUSP 5 ML UD.LIQ PO SCH ×2 (07:50→12:26)
[2020-09-22] MEDS: polyethylene glycoL 3350 17 GM POWD.PACK PO SCH (07:50)
[2020-09-22] MEDS: Nicotine 14 MG PATCH.TD24 TD SCH (07:50)
[2020-09-22] MEDS: Sennosides 8.6 MG TABLET PO SCH (07:53)
[2020-09-22] MEDS: Metoprolol XL (24 HR) Succ 25 MG TAB.ER.24H PO SCH (07:53)
[2020-09-22] MEDS: ALPRAZolam 0.5 MG TABLET PO SCH (07:54)
[2020-09-22] MEDS: allopurinoL 300 MG TABLET PO SCH (07:54)
[2020-09-22] MEDS: Ondansetron 4 MG/2 ML VIAL IVP PRN (08:07)
[2020-09-22 08:39] LABS: POC Creatinine Result 1.5 mg/dL (0.60-1.30)
[2020-09-22 10:49] VITALS: BP 116/78
[2020-09-22] MEDS ORDERED: Prochlorperazine 10 MG/2 ML VIAL IVP STA (11:40)
[2020-09-22] MEDS: Mag Hydrox/Al Hydrox/Simeth 30 ML UDC PO PRN (15:17)
== END 2020-09-22 15:59 | disposition critical access hospital (66) | DRG 987 ==
LOC: 3ANU → SUATTDRO 15:27 → 2NNU 09-13 16:18 → 3ANU 09-19 16:17
PROVIDERS: ADMIT Internal Medicine; ATTEND Internal Medicine
PROC: IRLYMPH (~2020-09-07)